=== PATIENT | male | born 1960 | race Caucasian/White ===

== ENCOUNTER 2019-12-04 07:53 | Outpatient (CLI) | payer BC ==
--- NOTE | 2019-12-04 08:54 | CT ---
EXAM: CT Abdomen Pelvis W WO con PROVIDED CLINICAL HISTORY: Microhematuria COMPARISON: None FINDINGS: The visualized lung bases are free of significant opacity. There is no evidence for urinary tract calculi or hydronephrosis. Prominent prostate calcifications a re seen. There is a subcentimeter hypodensity involving the inferior pole of the left kidney, too small to definitively characterize but statistically reflecting a cyst. No evidence for additional re nal lesion. The delayed images demonstrate no evidence for filling defect involving the renal collecting systems, opacified ureters or urinary bladder. The liver, spleen, pancreas and adrenal glands appear unremarkable. There is no bowel dilatation, volodymyr e fluid or lymph node enlargement apparent. There is nonspecific stranding involving the central abdominal mesentery. The regional major vascular structures appear unremarkable. The osseous structures demonstrate no concerning lytic or blastic lesions. IMPRESSION: Prominent prostate calcifications.
[2019-12-04] MEDS ORDERED: Iopamidol-370 76% 500 ML 1 ML ONE (15:10)
== END 2019-12-04 07:54 | disposition home or self-care (01) ==
LOC: BICCT 07:53
PROVIDERS: ATTEND Urology
DX: R31.29 Other microscopic hematuria (principal); N42.89 Other specified disorders of prostate
CPT/HCPCS: 74178; Q9967